=== PATIENT | male | born 1990 | race African-American/Black ===

== ENCOUNTER 2017-04-11 11:14 | Emergency (ER) | payer MEDICAID, SELFPAY | END 2017-04-11 11:52 | disposition home or self-care (01) | LOC: MADERS 11:14 | DX: R25.2 Cramp and spasm (principal); I10 Essential (primary) hypertension | CPT/HCPCS: 99283 ==

== ENCOUNTER 2017-04-16 19:24 | Emergency (ER) | payer SELFPAY | END 2017-04-16 21:19 | disposition home or self-care (01) | LOC: MADERS 19:24 | DX: T16.1XXA Foreign body in right ear, initial encounter (principal); I10 Essential (primary) hypertension | CPT/HCPCS: 99282 ==